=== PATIENT | female | born 1995 | race Two or more races ===

== ENCOUNTER 2019-06-26 01:17 | Inpatient (IN) | payer MEDICAID ==
[~2019-06-26] VITALS: Ht 170.2 cm; Wt 97.5 kg
[2019-06-26 01:25] VITALS: BP 125/78
[2019-06-26] MEDS ORDERED: MAG HYDROX/AL HYDROX/SIMETH 30 ML UDC PO PRN (02:00)
[2019-06-26] MEDS ORDERED: ACETAMINOPHEN 325 MG TABLET PO PRN (02:00)
[2019-06-26] MEDS ORDERED: ONDANSETRON HCL/PF 4 MG/2 ML VIAL IVP PRN (02:00)
[2019-06-26] MEDS ORDERED: Z GUARD REMEDY 2 OZ OINT TP PRN (02:00)
[2019-06-26] MEDS ORDERED: HYDROCODONE/APAP 5/325MG 1 EACH TABLET PO PRN (02:00)
[2019-06-26] MEDS ORDERED: MAGNESIUM HYDROXIDE 30 ML UDC PO PRN (02:00)
[2019-06-26 02:14] LABS: BASOPHILS % (AUTO) 0.3 % (0.0-2.0); EOSINOPHILS % (AUTO) 0.4 % (0.0-6.0); HEMATOCRIT 40 % (33-45); HEMOGLOBIN 13.7 g/dL (11.5-14.8); LYMPHOCYTES # (AUTO) 2.7 /CMM (0.8-4.8); LYMPHOCYTES % (AUTO) 21.2 % (20.0-44.0); MEAN CORPUSCULAR HGB CONC 34 g/dl (31.0-36.0); MEAN CORPUSCULAR VOLUME 86 fL (82-100); MONOCYTES # (AUTO) 0.8 /CMM (0.1-1.30); MONOCYTES % (AUTO) 6.4 % (2.0-12.0); NEUTROPHILS # (AUTO) 9.1 /CMM (1.8-8.9); NEUTROPHILS % (AUTO) 71.7 % (43.0-81.0); PLATELET COUNT (AUTO) 255 /CMM (150-450); WHITE BLOOD COUNT (AUTO) 12.7 K/uL (4.3-11.0)
[2019-06-26 02:20] LABS: CALCIUM, SERUM 8.8 mg/dL (8.5-10.1); CREATININE 0.7 mg/dL (0.6-1.3); POTASSIUM 3.5 mmol/L (3.5-5.1)
[2019-06-26] MEDS: MORPHINE SULFATE INJ 2 MG/ML DISP.SYRIN IV PRN (02:20)
[2019-06-26 02:25] LABS: ALBUMIN 3.7 g/dL (3.4-5.0); BILIRUBIN,TOTAL 1.2 mg/dL (0.2-1.0); MAGNESIUM 1.9 mg/dL (1.8-2.4); PHOSPHORUS 3.4 mg/dL (2.5-4.9); TOTAL PROTEIN, SERUM 7.7 g/dL (6.4-8.2)
--- NOTE | 2019-06-26 02:25 | NUR ---
MS RN NOTE PATIENT ARRIVED ON UNIT A/O X 4 IN [facility] WITH FAMILY AT BEDSIDE. PATIENT ABLE TO AMBULATE TO BED WITH STEADY GAIT. PATIENT SKIN GROSSLY INTACT NO WOUNDS PRESENT. PATIENT HAS 18 G IN RAC PATENT AND INTACT NO S/S OF INFECTION OR INFILTRATION. PATIENT BREATHING EVEN AND UNLABORED. NO S/S OF RESP DISTRESS. PATIENT DENIES SOB/ ON ROOM AIR SATURATION 97%. PATIENT DENIES CHEST PAIN. PATIENT C/O OF ABD PAIN 5/10. PATIENT INSTRUCTED ON USE OF CALL LIGHT, ORIENTATION TO UNIT, SAFETY INSTRUCTIONS, AND PLAN OF CARE. PATIENT VERBALIZES UNDERSTANDING. BED IN LOWEST LOCKED POSITION SIDE RAILS UP X 2. MEAT AND SEAFOOD CLERK WOOTEN NOTIFIED OF PATIENT ARRIVAL THROUGH EXCHANGE.
[2019-06-26 02:32] LABS: THYROID STIMULATING HORMONE 1.242 uIU/mL (0.358-3.74)
[2019-06-26] MEDS ORDERED: CEFTRIAXONE 1 G VIAL ONE (02:43)
[2019-06-26] MEDS: CEFTRIAXONE 1 G in IV D5W 50 ML IV SCH (02:45)
[2019-06-26] MEDS: IV NS 0.9% 1,000 ML IV PRN (06:12)
--- NOTE | 2019-06-26 07:30 | NUR ---
RN MS NOTE RECEIVED REPORT AT BEDSIDE. PT A/OX4. NO SIGN OF RESPIRATORY DISTRESS OR SOB AT THIS TIME. NPO SINCE LAST NIGHT. SAFETY MEASURES IN PLACE. BED LOCKED AND LOW, SIDE RAILS UPX2, BED ALARM ON. WILL CONTINUE TO MONITOR CLOSELY.
[2019-06-26 08:00] VITALS: BP 107/63
[2019-06-26] MEDS: FAMOTIDINE/PF INJ 20 MG/2 ML VIAL IV SCH ×2 (09:00→17:54)
--- NOTE | 2019-06-26 11:00 | NUR ---
MUSIC ENGRAVER NOTE PT TAKEN FOR HIDA SCAN.
--- NOTE | 2019-06-26 12:15 | NUR ---
RN MS NOTE PT BACK FROM HIDA SCAN. STABLE AND FAMILY MEMBER AT BEDSIDE. STILL NPO. WILL HAVE ANOTHER SCAN AT 1500.
--- NOTE | 2019-06-26 13:59 | NUR ---
RN MS NOTE DR. MALDONADO MADE AWARE OF AST 1.2 AND ALT [address] MALDONADO PT CAN EAT DINNER AND TO BE NPO AFTER MIDNIGHT.
--- NOTE | 2019-06-26 15:40 | NUR ---
RN MS NOTE PT TAKEN FOR THE 2ND SCAN.
[2019-06-26 16:00] VITALS: BP 128/63
--- NOTE | 2019-06-26 19:30 | NUR ---
MS RN OPENING NOTE RECEIVED PATIENT A/O X 4 WITH NO SIGNS OF DISTRESS. PATIENT IS ON ROOM AIR WITH NO SIGNS OF SOB. PATIENT HAD IV ACCESS ON THE LT AC #18 WITH NS RUNNING AT 75ML/HR. PATIENT DOES NOT COMPLAIN OF ANY PAIN AT THE MOMENT. ALL SKIN IS INTACT AND PATIENT HAS BATHROOM PRIVILEGES. ALL SAFETY PRECAUTIONS ARE APPLIED BED LOCKED IN LOW POSITION, SIDE RAILS UP X2, AND CALL LIGHT IS WITHIN REACH. WILL CONTINUE TO MONITOR PATIENT.
[2019-06-26 20:00] VITALS: BP 123/74
--- NOTE | 2019-06-26 20:06 | NUR ---
MS RN NOTE PT RESTING COMFORTABLY. NO SIGN OF ACUTE RESPIRATORY DISTRESS OR SOB AT THIS TIME. SAFETY MEASURES IN PLACE. BED LOCKED AND LOW, SIDE RAILS UPX2. FAMILY MEMBERS AT BEDSIDE EARLIER. ALL NEEDS ATTENDANT. ENDORSED TO PM NURSE FOR CORNELIA.
[2019-06-27] MEDS: IV NS 0.9% 1,000 ML IV PRN (00:20)
[2019-06-27] MEDS: CEFTRIAXONE 1 G in IV D5W 50 ML IV SCH (02:55)
[2019-06-27 04:00] VITALS: BP 108/56
[2019-06-27 07:23] LABS: BASOPHILS # (AUTO) 0.1 /CMM (0.0-0.2); BASOPHILS % (AUTO) 0.8 % (0.0-2.0); EOSINOPHILS % (AUTO) 1.8 % (0.0-6.0); HEMATOCRIT 39 % (33-45); HEMOGLOBIN 13.4 g/dL (11.5-14.8); LYMPHOCYTES # (AUTO) 2.7 /CMM (0.8-4.8); LYMPHOCYTES % (AUTO) 23.8 % (20.0-44.0); MEAN CORPUSCULAR HGB CONC 34 g/dl (31.0-36.0); MEAN CORPUSCULAR VOLUME 87 fL (82-100); MONOCYTES # (AUTO) 0.8 /CMM (0.1-1.30); MONOCYTES % (AUTO) 7.2 % (2.0-12.0); NEUTROPHILS # (AUTO) 7.6 /CMM (1.8-8.9); NEUTROPHILS % (AUTO) 66.4 % (43.0-81.0); PLATELET COUNT (AUTO) 230 /CMM (150-450); RED BLOOD CELL COUNT(AUTO) 4.52 MIL/uL (4.0-5.2); WHITE BLOOD COUNT (AUTO) 11.5 K/uL (4.3-11.0)
[2019-06-27 07:35] LABS: ALBUMIN 3.3 g/dL (3.4-5.0); BILIRUBIN,DIRECT 0.3 mg/dL (0.0-0.2); CALCIUM, SERUM 8.8 mg/dL (8.5-10.1); CREATININE 0.7 mg/dL (0.6-1.3); POTASSIUM 3.6 mmol/L (3.5-5.1); TOTAL PROTEIN, SERUM 7.5 g/dL (6.4-8.2)
--- NOTE | 2019-06-27 07:37 | NUR ---
MS RN CLOSING NOTE PATIENT IN BED SLEEPING WITH NO SIGNS OF DISTRESS. ON ROOM AIR WITH NO SOB. ALL SAFETY PRECAUTIONS APPLIED, CALL LIGHT WITHIN REACH, BED LOCKED IN LOW POSITION, AND SIDE RAILS UP X2. ENDORSE TO MORNING NURSE
[2019-06-27 08:00] VITALS: BP_SYST 108; BP_SYST 113; BP_DIAS 62; BP_DIAS 67
[2019-06-27 12:00] VITALS: BP 107/62
[2019-06-27] MEDS: FAMOTIDINE/PF INJ 20 MG/2 ML VIAL IV SCH ×2 (13:17→17:00)
[2019-06-27 16:00] VITALS: BP 111/52
--- NOTE | 2019-06-27 16:20 | NUR ---
alert, oriented, and appropriate, no complaint of abdominal pain, no nausea, nor vomitting. MRCP done, got fed with clear liquid diet, tolerated well. Dr Olvera called, for Lap Светлана in am at 0600, consent is not signed yet, " not until the dr talks to me about the procedure". verbalized understanding she is NPO after mn, for surgery in am by dr Olvera.
[2019-06-27 16:27] VITALS: BP 101/52
[2019-06-27 20:00] VITALS: BP 110/58
--- NOTE | 2019-06-27 20:15 | NUR ---
GRID CASTER OPENING NOTES RECEIVED REPORT FROM AM RN. PATIENT A/A/O X4, ABLE TO VERBALIZE NEEDS. BREATHING EVEN & UNLABORED, TOLERATING ROOM AIR. DENIES ANY SOB OR DIFFICULTY BREATHING. RADIAL PULSES PRESENT. LEFT AC IV INTACT & PATENT W/ DRESSING CDI & IVF NS INFUSING WELL @ 75 ML/HR. ABLE TO AMBULATE & MOVE INDEPENDENTLY IN BED. C/O SOME ABDOMINAL PAIN BUT TOLERABLE PER PATIENT. SAFETY MEASURES KEPT IN PLACE W/ SIDE RAILS UP & BED LOCKED IN LOWEST POSITION. CALL LIGHT PLACED WITHIN REACH & INSTRUCTED TO CALL FOR ASSISTANCE. WILL CONTINUE TO MONITOR.
[2019-06-28] MEDS: CEFTRIAXONE 1 G in IV D5W 50 ML IV SCH (03:10)
[2019-06-28] MEDS: IV NS 0.9% 1,000 ML IV PRN (03:13)
[2019-06-28 04:00] VITALS: BP 97/64
--- NOTE | 2019-06-28 05:50 | NUR ---
RN NOTES PATIENT TAKEN TO SURGERY.
[2019-06-28] MEDS ORDERED: BUPIVACAINE MPF W/EPI 0.25% 30 ML VIAL ONE (05:54)
[2019-06-28] MEDS ORDERED: FENTANYL PF 100MCG/2ML AMPUL ONE ×2 (05:54→07:55)
[2019-06-28] MEDS ORDERED: SCOPOLAMINE HBR 1 EA PATCH.TD72 TD ONE (05:55)
[2019-06-28] MEDS ORDERED: MIDAZOLAM HCL 2 MG/2ML VIAL ONE (05:55)
[2019-06-28] MEDS ORDERED: ANESTHESIA TRAY IN PYXIS 1 EA TRAY MC ONE (06:05)
--- NOTE | 2019-06-28 07:39 | NUR ---
RECEIVED CALL FROM SURGERY THAT THEY WILL BRING PT BACK FROM SURGERY. REPORT RECEIVED FROM CONSTRUCTION DRIVER RN AWAITING PT RETURN.
[2019-06-28] MEDS ORDERED: IV D5/0.45 NACL W/20 MEQ KCL 1L IV PRN ×2 (09:00)
--- NOTE | 2019-06-28 09:00 | NUR ---
RECEIVED PT BACK FROM SURGERY. PT VITALS TAKEN PT 119/64, 78 HR, PT O2 SAT 91% PLACED ON NC 2 L IMPROVED TO 98% PT ENCOURAGED TO COUGH AND DEEP BREATH.
[2019-06-28] MEDS: FAMOTIDINE/PF INJ 20 MG/2 ML VIAL IV SCH ×2 (09:36→16:50)
[2019-06-28] MEDS: MORPHINE SULFATE INJ 2 MG/ML DISP.SYRIN IV PRN (10:26)
[2019-06-28 12:00] VITALS: BP 119/64
[2019-06-28 16:41] VITALS: BP 136/77
--- NOTE | 2019-06-28 19:30 | NUR ---
RN CLOSING NOTES PT IN ROOM RESTING DENIES SOB HAS MILD PAIN IN ABDOMEN AREA. PT REFUSES IV FLUID AT PRESENT TIME STATES IT IS UNCOMFORTABLE FOR HER. PT HAS A RONALD DRAIN OUTPUT 50 ML. BED IS LOCKED AND IN LOWEST POSITION WITH CALL LIGHT IN REACH. REPORT GIVEN TO CROSSING GUARD RN FOR CONTINUATION OF CARE
[2019-06-28 20:00] VITALS: BP 120/72
--- NOTE | 2019-06-28 20:15 | NUR ---
LIVESTOCK RANCHER OPENING NOTES RECEIVED REPORT FROM ADILENE TURNER. PATIENT A/A/O X4, ABLE TO VERBALIZE NEEDS. BREATHING EVEN & UNLABORED, TOLERATING ROOM AIR. DENIES ANY SOB OR DIFFICULTY BREATHING. RADIAL PULSES PRESENT. LEFT AC IV & LEFT HAND IV #20 INTACT & PATENT W/ DRESSING CDI, REFUSING IVF @ THIS TIME. ABLE TO AMBULATE & MOVE INDEPENDENTLY IN BED. C/O SOME ABDOMINAL PAIN BUT TOLERABLE PER PATIENT. SURGICAL DRESSINGS CLEAN & DRY W/ NO BLEEDING OR SWELLING NOTED. RONALD DRAIN ON RIGHT ABDOMINAL SIDE W/ MINIMAL SANGUINEOUS DRAINAGE. DENIES ANY N/V. SAFETY MEASURES KEPT IN PLACE W/ SIDE RAILS UP & BED LOCKED IN LOWEST POSITION. CALL LIGHT PLACED WITHIN REACH & INSTRUCTED TO CALL FOR ASSISTANCE. EDUCATED ON DEEP BREATHING & COUGHING & USE OF INCENTIVE SPIROMETER. WILL CONTINUE TO MONITOR.
[2019-06-29] MEDS: CEFTRIAXONE 1 G in IV D5W 50 ML IV SCH (03:46)
[2019-06-29] MEDS: MORPHINE SULFATE INJ 2 MG/ML DISP.SYRIN IV PRN (03:52)
[2019-06-29 04:00] VITALS: BP 115/69
--- NOTE | 2019-06-29 07:47 | NUR ---
RN OPENING NOTES REPORT RECEIVED FROM LATHE SET UP PERSON RN. PT DENIES SOB AT PRESENT TIME HAS TOLERABLE PAIN IN ABDOMEN AT PRESENT MOMENT. PT ENCOURAGED TO USE INCENTIVE SPIROMETER. BED IS LOCKED AND IN LOWEST POSITION WILL CONTINUE TO MONITOR.
[2019-06-29 08:00] VITALS: BP 120/68
[2019-06-29] MEDS: FAMOTIDINE/PF INJ 20 MG/2 ML VIAL IV SCH (08:16)
--- NOTE | 2019-06-29 11:15 | NUR ---
DR. CARRANZA REMOVED RONALD DRAIN AT BEDSIDE. STATED PT IS GOOD TO D/C HANDED PRESCRIPTION TO RN AND PLACED IN PT D/C ELECTRICAL HIGH TENSION TESTER.
[2019-06-29] MEDS ORDERED: CEPH-570 PO (13:06)
[2019-06-29] MEDS ORDERED: HYDR-3972 PO (13:06)
[2019-06-29] MEDS ORDERED: INFLUENZA VACCINE 2019-20 0.5 ML DISP.SYRIN IM ONE (14:30)
--- NOTE | 2019-06-29 14:47 | NUR ---
RN D/C NOTES PT REQUESTED INFLUENZA VACCINE. VACCINE GIVEN. IV'S REMOVED AND BELONGINGS LIST SIGNED. PT DID NOT WANT PHOTOS TAKEN OF SURGICAL SITE. EXITCARE PACKET WITH PRESCRIPTION GIVEN TO FATHER OF PT. PT TAKEN HOME BY PRIVATE CARE. PT DENIED SOB BUT IS HAVING TOLERABLE PAIN IN ABD. EDUCATION SESSION DONE WITH PT AND PT VERBALLY STATED SHE UNDERSTOOD. D/C AT 1445.
== END 2019-06-29 14:55 | disposition home or self-care (01) | DRG 263 ==
LOC: MEDSG1 01:17
PROVIDERS: ADMIT Internal Medicine; ATTEND Registered Nurse
PROC: 0FT44ZZ Resection of Gallbladder, Percutaneous Endoscopic Approach (ICD-10-PCS; principal; 2019-06-28)
DX: K80.00 Calculus of gallbladder with acute cholecystitis without obstruction (principal); E66.9 Obesity, unspecified; R74.0 Nonspecific elevation of levels of transaminase and lactic acid dehydrogenase [LDH]; Z68.33 Body mass index [BMI] 33.0-33.9, adult
CPT/HCPCS: 36415; 74181-TC; 78226; 80048-TC; 80053-TC; 80076-TC; 83605-TC; 83690-TC; 83735-TC; 84100-TC; 84443-TC; 84702-TC; 85025-TC; 86850-TC; 87040-TC; 87081-TC; 88304-TC; 94799-TC; A9537; C9113; G0378; J0696; J1100; J1885; J2250; J2270; J2405; J2704; J2710; J3010; J3480; J3490; J7030; J7060; Q2036